=== PATIENT | female | born 1965 | race Two or more races ===

== ENCOUNTER 2017-08-07 09:35 | Inpatient (IN) | payer MEDICAID ==
[~2017-08-07] VITALS: Ht 152.4 cm; Wt 67.1 kg
[2017-08-07 09:45] VITALS: Ht 152.4 cm; Wt 67.1 kg
[2017-08-07 11:46] LABS: BASOPHIL % 0.2 % (0-2); PLATELET COUNT 306 x10^3mcL (130-400); RED CELL DISTRIBUTION WIDTH 13.6 % (11.5-14.5)
[2017-08-07 11:50] LABS: microscopic required? NO
[2017-08-07 12:07] LABS: urine erythrocyte NEGATIVE (NEGATIVE)
[2017-08-07 12:13] LABS: CALCIUM 9.9 mg/dL (8.5-10.1); CARBON DIOXIDE 24.2 mmol/L (21-32); CHLORIDE SERUM 104 mmol/L (98-107); CREATININE SERUM 0.6 mg/dL (0.6-1.0); GFR1 > 60 mL/min; GLUCOSE SERUM 105 mg/dL (74-106); POTASSIUM SERUM 3.8 mmol/L (3.5-5.1); SODIUM SERUM 140 mmol/L (136-145)
[2017-08-07 12:23] LABS: ALBUMIN 3.7 g/dL (3.4-5.0); ALKALINE PHOSPHATASE 104 U/L (46-116); ALT/SGPT 39 U/L (14-59); AST/SGOT 17 U/L (15-37); BILIRUBIN TOTAL 0.5 mg/dL (0.20-1.00); C REACTIVE PROTEIN 3.9 mg/dL (<=0.9)
[2017-08-07 12:24] LABS: T3 TOTAL 1.09 ng/mL; TOTAL PROTEIN, SERUM 8.3 g/dL (6.4-8.2)
[2017-08-07 12:25] LABS: CK-MB < 0.5 ng/mL (0-3.6); CREATINE KINASE 25 U/L (26-192)
[2017-08-07 12:27] LABS: FREE T4 1.24 ng/dL (0.76-1.46); FREE THYROXINE INDEX 3.2 ug/dL (1.4-4.5); T4(THYROXINE) 10.2 ug/dL (4.7-13.3)
[2017-08-07 12:38] LABS: ERYTHROCYTE SED RATE 64 mm/hr (0-30)
[2017-08-07 13:53] VITALS: BP 113/69
[2017-08-07 16:16] LABS: CHOLESTEROL/HDL RATIO 3.4; PHOSPHOROUS 2.2 mg/dL (2.5-4.9)
[2017-08-07 21:13] VITALS: BP 91/62
[2017-08-08 05:30] VITALS: BP 98/62
[2017-08-08 07:17] LABS: BASOPHIL % 0.3 % (0-2); PLATELET COUNT 261 x10^3mcL (130-400)
[2017-08-08 07:51] LABS: CALCIUM 8.8 mg/dL (8.5-10.1); CARBON DIOXIDE 24.3 mmol/L (21-32); CHLORIDE SERUM 106 mmol/L (98-107); CREATININE SERUM 0.5 mg/dL (0.6-1.0); GFR1 > 60 mL/min; GLUCOSE SERUM 110 mg/dL (74-106); PHOSPHOROUS 3.4 mg/dL (2.5-4.9); POTASSIUM SERUM 3.8 mmol/L (3.5-5.1); SODIUM SERUM 140 mmol/L (136-145)
[2017-08-08 14:23] VITALS: BP 106/73
[2017-08-08 18:00] VITALS: BP 97/69
[2017-08-08 20:53] LABS: AMPHETAMINE QUAL UR NONE DETECTED (NEG <=1000)
[2017-08-08 21:10] VITALS: BP 109/77
[2017-08-09 05:09] VITALS: BP 103/61
[2017-08-09 06:59] LABS: BASOPHIL % 0.2 % (0-2); PLATELET COUNT 234 x10^3mcL (130-400); RED CELL DISTRIBUTION WIDTH 13.3 % (11.5-14.5)
[2017-08-09 07:17] LABS: CALCIUM 9.2 mg/dL (8.5-10.1); CARBON DIOXIDE 25.2 mmol/L (21-32); CHLORIDE SERUM 107 mmol/L (98-107); CREATININE SERUM 0.6 mg/dL (0.6-1.0); GFR1 > 60 mL/min; GLUCOSE SERUM 91 mg/dL (74-106); POTASSIUM SERUM 3.8 mmol/L (3.5-5.1); SODIUM SERUM 141 mmol/L (136-145)
[2017-08-09 10:15] VITALS: BP 99/66
[2017-08-09] MEDS ORDERED: METP PO ×3 (11:26→12:58)
[2017-08-09] MEDS ORDERED: LEVAQUIN750 MG PO (11:28)
[2017-08-09] MEDS ORDERED: CLEOCIN HCL300 MG PO (11:28)
[2017-08-09] MEDS ORDERED: NORCO1 TA2 PO (11:32)
[2017-08-09] MEDS ORDERED: COLACE100 MG PO (11:38)
[2017-08-09 12:33] VITALS: BP 99/66
[2017-08-09] MEDS ORDERED: ZOF4 PO (12:58)
[2017-08-09] MEDS ORDERED: LAC PO (13:02)
[2017-08-09] MEDS ORDERED: FLA500 PO ×2 (13:09→13:10)
== END 2017-08-09 13:35 | disposition home or self-care (01) | DRG 244 ==
LOC: ED 09:35 → DU 13:00
PROVIDERS: Family Medicine; Specialist
DX: K57.32 Diverticulitis of large intestine without perforation or abscess without bleeding (principal); E83.39 Other disorders of phosphorus metabolism; D64.9 Anemia, unspecified; Z68.27 Body mass index [BMI] 27.0-27.9, adult
CPT/HCPCS: 83880; 84439; 90658; J0696; J1170; J1885; J1956; J2405; J3490; J7030; Q0092